=== PATIENT | male | born 1995 | race African-American/Black ===

== ENCOUNTER 2016-09-10 00:47 | Emergency (ER) | payer SELFPAY ==
[2016-09-10 00:49] VITALS: BP 146/69; PULSE 122; RESP 16; TEMP 97.7; O2SAT 98
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
[2016-09-10] MEDS ORDERED: MORPHINE SULFATE 4 MG/ML INJ IV PUSH ONE (02:00)
[2016-09-10] MEDS ORDERED: LIDOCAINE HCL 2% 20 ML VIAL INFIL ONE (02:00)
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
[2016-09-10] MEDS ORDERED: CEPH-460 PO (03:09)
[2016-09-10] MEDS ORDERED: IBUP800T23 PO (03:10)
== END 2016-09-10 03:23 | disposition home or self-care (01) ==
LOC: NEPE 00:47
DX: S61.217A Laceration without foreign body of left little finger without damage to nail, initial encounter (principal); S61.216A Laceration without foreign body of right little finger without damage to nail, initial encounter; S61.214A Laceration without foreign body of right ring finger without damage to nail, initial encounter; W45.8XXA Other foreign body or object entering through skin, initial encounter
CPT/HCPCS: 12002; 73130; 96374; 99283; J2270

== ENCOUNTER 2016-09-21 21:54 | Emergency (ER) | payer SELFPAY ==
[~2016-09-21] VITALS: Ht 180.3 cm; Wt 84.0 kg
[~2016-09-21 21:54] MED LIST: CEPH-460 PO; IBUP800T23 PO
[2016-09-21 21:56] VITALS: BP 142/74; PULSE 81; RESP 16; TEMP 99; O2SAT 97
--- NOTE | 2016-09-21 22:15 | PD ---
HPI Chief Complaint: Wound/Suture/Staple Re-Check Time Seen by Provider: 22:12 Travel History International Travel<30 days: No Contact w/Intl Traveler<30days: No Traveled to known affect area: No History of Present Illness HPI 21-year-old black male presents emergency department for suture removal. He states that sutures were placed in both hands 11 days ago. No drainage. No fever chills. Pain is minimal. PFSH Past Medical History Medical History: Denies Significant Hx Immunizations Current: Yes Tetanus Vaccination: < 5 Years Past Surgical History Surgical History: No Previous Surgery Social History Alcohol Use: No Tobacco Use: No Substance Use: No Allergies-Medications (Allergen,Severity, Reaction): Coded Allergies: No Known Allergies (Unverified , 09/21/16) Reported Meds & Prescriptions Reported Meds & Active Scripts Active Ibuprofen 800 Mg Tab 800 Mg PO Q8H PRN Keflex (Cephalexin) 500 Mg Cap 500 Mg PO Q6H 5 Days Review of Systems Except as stated in HPI: all other systems reviewed are Neg General / Constitutional: No: Fever, Chills Musculoskeletal: No: Myalgias, Arthralgias, Limited ROM, Weakness, Edema Skin: No Rash, No Lesions Physical Exam Narrative GENERAL: This is a well-nourished, well-developed patient, in no apparent distress. SKIN: No rashes, ecchymoses or lesions. Warm and dry. Patient's finger lacerations are healing without signs of infection no erythema or discharge. HEAD: Atraumatic. Normocephalic. EYES: PERRL, EOMI, no discharge or injection. No scleral icterus. EARS: Clear NOSE: Nasal turbinates appear normal. THROAT: Mucosa pink and moist. Airway patent. NECK: Trachea midline. supple, moves head freely. LUNGS: Clear to auscultation. CV: Regular in rhythm. ABDOMEN: Soft nontender. EXT: No clubbing cyanosis or edema. Data Data Last Documented VS Vital Signs Date Time Temp Pulse Resp B/P Pulse Ox O2 Delivery O2 Flow Rate FiO2 09/21/16 21:56 99.0 81 16 142/74 97 Room Air MDM Medical Decision Making Medical Screen Exam Complete: Yes Emergency Medical Condition: No Medical Record Reviewed: Yes Differential Diagnosis MDM: High Differential diagnoses: Fracture, sprain, strain, dislocation, contusion, neurovascular injury Narrative Course Patient lacerations are healing without signs of infection. Sutures are removed without incidence. Dressings applied. Diagnosis Primary Impression: Visit for suture removal Patient Instructions: General Instructions Additional Instructions: Rest. Elevation. Tylenol and Advil for pain. Daily wound care with soap, water, Neosporin. Return to the ER if any problems. Med/Other Pt SpecificInfo: No Meds Exist/No RX given, Wound Care Disposition: DISCHARGE HOME Condition: Stable Jone Puente September 21, 2016 22:15
== END 2016-09-21 22:39 | disposition home or self-care (01) ==
LOC: NEPK 21:54
DX: Z48.02 Encounter for removal of sutures (principal)
CPT/HCPCS: 99281